=== PATIENT | female | born 1995 | race American Indian/Alaskan Native ===

== ENCOUNTER 2016-09-14 10:48 | Outpatient (CLI) | payer MEDICAID ==
[2016-09-14 11:34] VITALS: BP 107/66
[2016-09-14] MEDS ORDERED: VISTARIL PO ONE ×2 (12:15→13:30)
== END 2016-09-14 13:00 | disposition home or self-care (01) ==
LOC: TRG 10:48
PROVIDERS: ATTEND Obstetrics & Gynecology
DX: O47.1 False labor at or after 37 completed weeks of gestation (principal); Z3A.39 39 weeks gestation of pregnancy
CPT/HCPCS: 59025; Q0177

== ENCOUNTER 2016-09-16 08:22 | Outpatient (CLI) | payer MEDICAID ==
[2016-09-16 08:55] VITALS: BP 121/68
== END 2016-09-16 11:30 | disposition home or self-care (01) ==
LOC: TRG 08:22
PROVIDERS: ATTEND Obstetrics & Gynecology
DX: O47.1 False labor at or after 37 completed weeks of gestation (principal); Z3A.39 39 weeks gestation of pregnancy
CPT/HCPCS: 59025

== ENCOUNTER 2016-09-16 17:19 | Inpatient (IN) | payer MEDICAID ==
[2016-09-16] MEDS ORDERED: LACTATED RINGERS 1,000 ML IV SCH (18:00)
[2016-09-16] MEDS ORDERED: ZOFRAN IV PRN (18:10)
[2016-09-16] MEDS ORDERED: XYLOCAINE 2% INFILTRATI ONE (18:10)
[2016-09-16] MEDS ORDERED: BRETHINE SUB-Q PRN (18:10)
[2016-09-16] MEDS ORDERED: ePHEDrine SULFATE IV PRN ×2 (18:10→20:45)
[2016-09-16] MEDS ORDERED: PHENERGAN PO PRN (18:10)
[2016-09-16] MEDS ORDERED: MINERAL OIL PO PRN (18:10)
[2016-09-16] MEDS ORDERED: BRETHINE IVP PRN (18:10)
[2016-09-16] MEDS ORDERED: SUBLIMAZE IV PRN (18:10)
[2016-09-16] MEDS ORDERED: NARCAN 0.4 MG/1 ML IV PRN (18:10)
--- NOTE | 2016-09-16 18:22 | History and Physical Report ---
History of Present Illness Date of examination: 09/16/16 Date of admission: 09/16/16 17:45 Chief complaint: contractions History of present illness: 21 yo at 39+4 weeks admitted for labor (active). NO VB no leaking and good fm. No other complaints . Patient has 6 visits course include: 1. late care/poor care at 23 weeks 2. anemia- iron given labs: O+ antibody neg h/h 9.9/31.1 Rubella IMM RPR NR Urine culture neg Hep neg HIV neg CF neg PLt 188 sickle AA dionicio neg chlamneg h/h 10.7/32.9 DM 111 PLT 151 US burnette EGA 28 AUA 28+3 weeks EFW 1172 35% anatomy wnl RPR NR chlam neg dionicio neg GBS neg HIV neg Past History Past Medical History: other (ulcer) Past Surgical History: no surgical history Family/Genetic History: none Social history: . denies: smoking, alcohol abuse, prescription drug abuse - Obstetrical History Expected Date of Delivery: 09/19/16 Actual Gestation: 39 Week(s) 4 Day(s) : 1 Para: 0 Hx # Term Pregnancies: 0 Number of Pregnancies: 0 Spontaneous Abortions: 0 Induced : 0 Number of Living Children: 0 Medications and Allergies Allergies Allergy/AdvReac Type Severity Reaction Status Date / Time No Known Allergies Allergy Verified 09/14/16 12:09 Home Medications Medication Instructions Recorded Confirmed Last Taken Type Pnv Cmb#21/Iron/Folic Acid 200 mg PO DAILY 04/11/16 09/14/16 09/13/16 21:00 History [ Complete Caplet] 1 Ferrous Sulfate [Feosol] 325 mg PO TID 09/14/16 09/14/16 09/13/16 21:00 History 1 Active Meds: Active Medications Lactated Ringer's (Lactated Ringers) 1,000 mls @ 125 mls/hr IV DIRECT NIDHI Review of Systems Constitutional: weight gain Eyes: deferred Ears, nose, mouth and throat: deferred Genitourinary: no vaginal bleeding, no leakage of fluid Rectal Exam: deferred - Physical Exam Breasts: Positive: deferred Cardiovascular: Regular rate, Normal S1, Normal S2 Lungs: Positive: Clear to auscultation, Normal air movement Abdomen: Positive: normal appearance, soft, normal bowel sounds Genitourinary (Female): Positive: normal external genitalia, normal perenium Vulva: both: normal Vagina: Positive: normal moisture Cervix: Negative: lesion Uterus: Positive: normal size, normal contour - Obstetrical FHR: auscultation normal, category 1 Uterine Contraction Monitor Mode: External Cervical Dilatation: 6 Cervical Effacement Percentage: 90 station: -3 Uterine Contraction Pattern: Regular Uterine Tone Measurement Phase: Contraction Uterine Contraction Intensity: Moderate Results All other labs normal. Assessment and Plan HD#1 Active labor GBS neg no abs required IVF consider pitocin for augmentation offer epidural continuous monitoring expect vaginal delivery
[2016-09-16 18:33] LABS: Hematocrit 37.3 % (30.3-42.9); Hemoglobin 12.5 gm/dl (10.1-14.3); Mean Corpuscular HGB Conc 34 % (30-34); Mean Corpuscular Hemoglobin 28 pg (28-32); Mean Corpuscular Volume 84 fl (79-97); Platelet Count 137 K/mm3 (140-440); Red Blood Count 4.47 M/mm3 (3.65-5.03); White Blood Count 10.4 K/mm3 (4.5-11.0)
[2016-09-16] MEDS ORDERED: PITOCin/NS 20 UNIT/1000ML DRIP 20 UNITS/1,000 ML BAG IV SCH (19:00)
[2016-09-16] MEDS ORDERED: PITOCin/NS 30 UNIT/500ML 30 UNITS/500 ML BAG IV SCH ×2 (19:00)
[2016-09-16] MEDS: LACTATED RINGERS 1,000 ML IV SCH ×2 (20:01→21:20)
--- NOTE | 2016-09-16 20:47 | Anesthesia Consultation ---
Anesthesia Consult and Med Hx Date of service: 09/16/16 - Airway Anesthetic Teeth Evaluation: Good ROM Head & Neck: Adequate Mental/Hyoid Distance: Adequate Mallampati Class: Class II Intubation Access Assessment: Probably Good - Pulmonary Exam CTA: Yes - Cardiac Exam Cardiac Exam: RRR - Pre-Operative Health Status ASA Pre-Surgery Classification: ASA2 Proposed Anesthetic Plan: Epidural, Spinal - Pulmonary Hx Asthma: No COPD: No Hx Pneumonia: No - Cardiovascular System Hx Hypertension: No - Central Nervous System Hx Seizures: No Hx Psychiatric Problems: No - Endocrine Hx Renal Disease: No Hx End Stage Renal Disease: No Hx Hypothyroidism: No Hx Hyperthyroidism: No - Hematic Hx Anemia: Yes Hx Sickle Cell Disease: No - Additional Comments Anesthesia Medical History Comments: +
[2016-09-16] MEDS ORDERED: ePHEDrine SULFATE ONE (20:56)
[2016-09-16] MEDS ORDERED: fentaNYL-BUPIV 2 MCG/ML-0.125% 200 MCG/100 ML BAG EPIDURAL SCH (21:00)
[2016-09-17] MEDS ORDERED: MILK OF MAGNESIA PO PRN (02:14)
[2016-09-17] MEDS ORDERED: LANSINOH TP PRN (02:14)
[2016-09-17] MEDS ORDERED: PERCOCET 5/325 PO PRN (02:14)
[2016-09-17] MEDS ORDERED: DULCOLAX PR PRN (02:14)
[2016-09-17] MEDS ORDERED: BENADRYL PO PRN (02:14)
[2016-09-17] MEDS ORDERED: ZOFRAN IV PRN (02:14)
[2016-09-17] MEDS ORDERED: TYLENOL PO PRN (02:14)
[2016-09-17] MEDS ORDERED: DERMOPLAST TP PRN (02:14)
[2016-09-17] MEDS ORDERED: NORCO 5/325 PO PRN (02:14)
[2016-09-17] MEDS ORDERED: PHENERGAN PR PRN (02:14)
[2016-09-17] MEDS ORDERED: TUCKS PAD TP PRN (02:14)
[2016-09-17] MEDS ORDERED: PHENERGAN PO PRN (02:14)
--- NOTE | 2016-09-17 02:22 | Procedure Note ---
OB Delivery Note - Delivery Date of Delivery: 09/17/16 Surgeon: STEFANIA BRADLEY Estimated blood loss: 500cc - Vaginal Delivery presentation: vertex Delivery position: OA Intrapartum events: none Delivery induction: none Delivery augmentation: rupture of membranes, pitocin Delivery monitor: external FHT, external uterine Route of delivery: Delivery placenta: spontaneous Delivery cord: 3 umbilical vessels Episiotomy: none Delivery laceration: 2nd degree Delivery repair: vicryl Anesthesia: epidural Delivery comments: Patient was noted to be c/c/+1 and commenced to delivery a viable female infant at 116 . nasospharynx and oropharynx suctions and placed on [facility] [place]. The cord was cut and clamped and placenta delivered at 119. Apgars noted to be 8 and 9 with weight 7#5oz. A 2nd degree perineum and vaginal laceration repaired with 3-0 vicryl and 2-0 vicryl. Patient tolerated procedure well. excellent hemostasis noted EBL 500 cc. - Infant A at 1 minute: 8 at 5 minutes: 9 Infant Gender: Female
[2016-09-17] MEDS ORDERED: SENOKOT S PO SCH (03:00)
[2016-09-17] MEDS ORDERED: SODIUM CHLORIDE FLUSH SYRINGE 10 ML IV PRN (03:00)
[2016-09-17] MEDS ORDERED: PRENATAL VITAMIN PO SCH (10:00)
--- NOTE | 2016-09-17 13:01 | Progress Note ---
Assessment and Plan PPD#1 s/p breast and bottle feeding undecided control Rh+ no rhogam indicated girl VSS lochia decreased Subjective - Subjective Date of service: 09/17/16 Principal diagnosis: s/p Interval history: 21 yo at 39+4 weeks admitted for labor (active). NO VB no leaking and good fm. No other complaints . Patient has 6 visits course include: 1. late care/poor care at 23 weeks 2. anemia- iron given labs: O+ antibody neg h/h 9.9/31.1 Rubella IMM RPR NR Urine culture neg Hep neg HIV neg CF neg PLt 188 sickle AA dionicio neg chlamneg h/h 10.7/32.9 DM 111 PLT 151 US burnette EGA 28 AUA 28+3 weeks EFW 1172 35% anatomy wnl RPR NR chlam neg dionicio neg GBS neg HIV neg Patient reports: appetite normal, voiding normally, pain well controlled, flatus , ambulating normally : doing well, nursing well, bottle feeding Objective - Vital Signs Latest vital signs: Vital Signs Temp Pulse Pulse Resp BP BP Pulse Ox 09/17/16 12:10 98.3 F 88 20 115/51 09/17/16 08:30 98.1 F 93 H 18 111/55 09/17/16 03:00 98.8 F 98 H 20 136/82 09/17/16 02:34 108 H 129/76 09/17/16 02:19 102 H 130/77 09/17/16 02:04 106 H 132/72 09/17/16 01:49 110 H 131/73 09/17/16 01:34 116 H 122/59 09/17/16 01:19 117 H 132/66 09/17/16 00:57 20 09/17/16 00:31 112 H 99 09/17/16 00:26 111 H 98 09/17/16 00:25 119 H 94 09/17/16 00:21 101 H 98 09/17/16 00:16 112 H 105/56 98 09/17/16 00:12 107 H 94 09/17/16 00:11 109 H 95 09/17/16 00:06 104 H 95 09/17/16 00:01 110 H 96 09/16/16 23:56 116 H 98 03/18/17 23:54 110 H 93 0318/17 23:51 110 H 95 0318/17 23:42 105 H 93 0318/17 23:41 110 H 97 0318/17 23:36 110 H 95 0318/17 23:31 109 H 98 0318/17 23:26 109 H 97 18/17 23:21 105 H 99 0318/17 23:16 100 H 85 18/17 23:14 119 H 98 18/17 23:12 114 H 129/66 18/17 23:10 107 H 133/57 18/17 23:09 104 H 97 0318/17 23:08 102 H 131/62 18/17 23:06 101 H 131/62 18/17 23:04 107 H 138/70 97 18/17 23:02 103 H 137/70 18/17 23:00 96 H 133/70 18/17 22:59 97 H 98 18/17 22:58 105 H 118/67 18/17 22:56 100 H 111/63 18/17 22:55 99 H 94 18/17 22:54 97 H 109/68 97 18/17 22:52 102 H 102/67 18/17 22:51 100 H 107/55 18/17 22:49 96 H 109/59 98 18/17 22:46 100 H 119/58 0318/17 22:45 92 H 120/57 0318/17 22:44 96 H 97 0318/17 22:40 95 H 165/126 18/17 22:39 100 H 97 0318/17 22:34 102 H 97 0318/17 22:32 96 H 119/59 0318/17 22:30 104 H 123/71 0318/17 22:29 93 H 127/75 96 0318/17 22:26 99 H 121/58 0318/17 22:24 102 H 123/71 97 0318/17 22:22 96 H 126/72 0318/17 22:20 104 H 118/68 0318/17 22:19 102 H 98 0318/17 22:18 98 H 121/70 18/17 22:16 99 H 115/68 18/17 22:14 96 H 110/75 97 18/17 22:12 103 H 108/73 18/17 22:10 106 H 98/60 18/17 22:09 101 H 98 18/17 22:08 95 H 112/62 18/17 22:06 93 H 107/60 18/17 22:04 95 H 108/64 98 17 22:02 95 H 111/63 18/17 22:01 95 H 109/76 18/17 21:59 96 H 96 18/17 21:58 93 H 137/98 18/17 21:56 100 H 143/70 18/17 21:55 94 H 119/57 18/17 21:54 97 H 97 18/17 21:53 96 H 130/62 18/17 21:50 95 H 100/56 09/16/17 21:49 95 H 102/50 98 09/16/17 21:47 90 93 18/17 21:46 97 H 114/67 18/17 21:45 96 H 124/65 18/17 21:44 98 H 97 18/17 21:42 92 H 118/59 18/17 21:40 92 H 107/60 18/17 21:38 96 H 110/67 18/17 21:36 97 H 107/60 18/17 21:34 100 H 109/52 18/17 21:32 110 H 135/63 18/17 21:30 96 H 119/63 18/17 21:28 95 H 115/64 18/17 21:26 100 H 117/58 18/17 21:24 92 H 115/59 18/17 21:22 103 H 113/58 18/17 21:20 90 113/55 0318/17 21:18 92 H 120/56 96 18/17 21:16 92 H 117/59 18/17 21:15 98 H 93 18/17 21:14 90 122/56 18/17 21:13 97 H 97 18/17 21:12 99 H 117/55 03/18/17 21:10 96 H 110/58 09/16/17 21:09 96 H 113/56 88 17 21:08 105 H 95 17 21:04 99 H 103/58 93 17 21:03 104 H 97 09/16/16 21:02 94 H 102/56 09/16/17 21:00 99 H 102/57 17 20:58 96 H 101/52 99 17 20:56 96 H 103/53 09/16/17 20:54 96 H 101/55 09/16/17 20:53 99 H 98 17 20:52 104 H 100/49 09/16/16 20:50 104 H 100/49 09/16/16 20:49 106 H 97/51 17 20:48 105 H 86 17 20:46 104 H 102/50 17 20:44 108 H 105/52 17 20:42 108 H 107/55 17 20:40 107 H 114/58 17 20:38 114 H 120/59 09/16/17 20:37 104 H 133/58 17 20:34 107 H 97/53 100 17 20:32 103 H 128/58 17 20:30 108 H 118/59 09/16/17 20:29 100 H 100 1817 20:28 106 H 109/59 09/16/16 20:26 105 H 121/58 17 20:24 105 H 119/59 100 1817 20:23 107 H 125/61 82 L 17 20:19 102 H 128/58 100 18/17 18:12 97.6 F 16 Intake and Output 09/16/16 09/17/16 09/17/16 22:59 06:59 14:59 Intake Total 1000 1875 900 Output Total 800 600 Balance 1000 1075 300 Intake: IV 1000 1175 Lactated Ringers 1,000 ml 1000 @ 125 mls/hr IV DIRECT NIDHI Rx#:[id number] PITOCin/NS 20 UNIT/1000ML 1175 DRIP 20 units In 1,000 ml @ 125 mls/hr IV DIRECT NIDHI Rx#:[id number] Oral 300 900 Intake, Free Water 400 Output: Urine 800 600 Void 800 600 Other: Total, Intake Amount 300 900 Total, Output Amount 800 600 # Voids Void 1 2 1 Weight 64.864 kg Estimated Blood Loss 500 - Exam Breasts: Present: normal Cardiovascular: Present: Regular rate, Normal S1, Normal S2 Lungs: Present: Clear to auscultation, Normal air movement Abdomen: Present: normal appearance, soft, normal bowel sounds. Absent: distention, tenderness Vulva: both: normal Uterus: Present: normal, firm, fundal height at umbilicus Extremities: Present: normal Deep Tendon Reflex Grade: Normal +2 - Labs Labs: Abnormal lab results 09/16/16 Range/Units 18:00 RDW 16.0 H (13.2-15.2) % Plt Count 137 L (140-440) K/mm3
[2016-09-17 16:19] LABS: Hematocrit 33.1 % (30.3-42.9); Hemoglobin 10.9 gm/dl (10.1-14.3)
[2016-09-17] MEDS: MOTRIN PO SCH (18:12)
[2016-09-18] MEDS ORDERED: M-M-R II VACCINE SUB-Q ONE (02:14)
[2016-09-18] MEDS: MOTRIN PO SCH ×3 (06:00→12:01)
[2016-09-18] MEDS ORDERED: BOOSTRIX IM ONE (06:00)
--- NOTE | 2016-09-18 08:14 | Progress Note ---
Assessment and Plan A: PPD#1 s/p at term P: Routine care. Discharge today per pt request with follow up at the office in two weeks with Dr Simpson. Subjective - Subjective Date of service: 09/18/16 Principal diagnosis: s/p Interval history: No overnight events. Pt desires to go home today. Patient reports: appetite normal, voiding normally, pain well controlled, ambulating normally, no dizzy ambulation, no nauseated : doing well Objective - Vital Signs Latest vital signs: Vital Signs Temp Pulse Resp BP 09/18/16 06:00 18 09/18/16 05:42 98.0 F 88 20 101/61 09/18/16 01:35 98.2 F 91 H 18 96/56 09/17/16 21:18 97.9 F 88 20 148/88 09/17/16 16:05 97.9 F 86 18 124/75 09/17/16 12:10 98.3 F 88 20 115/51 09/17/16 08:30 98.1 F 93 H 18 111/55 Intake and Output 09/17/16 09/18/16 09/18/16 22:59 06:59 14:59 Intake Total 360 Balance 360 Intake: Oral 360 Other: Total, Intake Amount 360 - Exam Breasts: Present: deferred Cardiovascular: Present: Regular rate Lungs: Present: Clear to auscultation Abdomen: Present: soft Uterus: Present: fundal height below umbilicus Extremities: Present: normal
--- NOTE | 2016-09-18 08:17 | Discharge Summary ---
Providers - Providers Date of Admission: 09/16/16 17:45 Date of discharge: 09/18/16 Attending physician: STEFANIA BRADLEY MD Primary care physician: JOSEPHINE SOL Hospitalization Reason for admission: active labor Delivery: Procedure details: , please see delivery note. Episiotomy: none Laceration: 2nd degree Other procedures: none complications: none Discharge diagnosis: IUP at term delivered [place] baby: female Hospital course: Pt underwent spontaneous vaginal delivery which she tolerated well. Her course was uncomplicated and she met discharge criteria on PPD#1. Condition at discharge: Stable Disposition: DISCHARGED TO HOME OR SELFCARE - Discharge Diagnoses (1) Term of female Status: Acute (2) Anemia affecting Status: Acute Plan - Discharge Medications Prescriptions: Docusate Sodium [Colace CAP] 100 mg PO BID PRN #30 capsule PRN Reason: Constipation Ferrous Sulfate [Feosol 325 MG tab] 325 mg PO BID #60 tablet Ibuprofen [Motrin] 600 mg PO Q8H PRN #60 tablet PRN Reason: Pain oxyCODONE /ACETAMINOPHEN [Percocet 5/325] 1 tab PO Q6HR PRN #30 tablet PRN Reason: Pain - Provider Discharge Summary Activity: routine, no sex for 6 weeks, no heavy lifting 4 weeks, no strenuous exercise Diet: routine Instructions: routine Additional instructions: [] Smoking cessation referral if applicable(refer to patient education folder for contact #) [] Refer to [facility] Booklet Call your doctor immediately for: * Fever > 100.5 * Heavy vaginal bleeding ( >1 pad per hour) * Severe persistent headache * Shortness of breath * Reddened, hot, painful area to leg or breast * Drainage or odor from incision. * Keep incision clean and dry at all times and follow doctor's instructions regarding bathing/showering - Follow up plan Follow up: STEFANIA BRADLEY MD [Staff Physician] - 10/02/16 (laceration check )
[2016-09-18] MEDS: COLACE PO SCH ×2 (10:20)
[2016-09-18 17:43] VITALS: BP 98/50
== END 2016-09-18 16:00 | disposition home or self-care (01) | DRG 775 ==
LOC: TRG 17:19 → LD 17:45 → TRG 17:45 → OB 09-17 03:46
PROVIDERS: ADMIT Obstetrics & Gynecology; ATTEND Obstetrics & Gynecology
PROC: 0KQM0ZZ Repair Perineum Muscle, Open Approach (ICD-10-PCS; principal; 2016-09-17)
PROC: 10E0XZZ Delivery of Products of Conception, External Approach (ICD-10-PCS; 2016-09-17)
PROC: 3E0S3CZ (ICD-10-PCS; 2016-09-17)
PROC: 00HU33Z Insertion of Infusion Device into Spinal Canal, Percutaneous Approach (ICD-10-PCS; 2016-09-17)
DX: O99.02 Anemia complicating childbirth (principal); O70.1 Second degree perineal laceration during delivery; Z3A.39 39 weeks gestation of pregnancy; Z37.0 Single live birth; D64.9 Anemia, unspecified
CPT/HCPCS: 36415; 85014; 85018; 85027; 86850; 86900; 86901; 90471; 90715; 99211; A6250; G0463; J2590; J3010; J7120

== ENCOUNTER 2021-03-28 06:05 | Day surgery (SDC) | payer MEDICAID ==
[~2021-03-28 06:05] MED LIST: ACETAMINOPHEN 500 MG TAB PO SCH; CELECOXIB 200 MG CAP PO NR; GABAPENTIN 300 MG CAP PO NR; LACTATED RINGERS 1,000 ML IV SCH; MIDAZOLAM 2 MG/2 ML INJ IV NR; SCOPOLAMINE TRANSDERMAL PATCH 72 HR TD NR
[2021-03-28 07:06] LABS: Hemoglobin 11.3 gm/dl (10.1-14.3); Mean Corpuscular HGB Conc 35 % (30-34); Mean Corpuscular Volume 86 fl (79-97); Platelet Count 177 K/mm3 (140-440); Red Blood Count 3.71 M/mm3 (3.65-5.03)
[2021-03-28] MEDS ORDERED: fentaNYL 100 MCG/2 ML INJ ONE (07:16)
[2021-03-28] MEDS ORDERED: ROCURONIUM 50 MG/5 ML INJ IV ONE (07:16)
[2021-03-28] MEDS ORDERED: LIDOCAINE MPF (2%) 20 MG/1 ML VIAL 5 ML ONE (07:16)
[2021-03-28] MEDS ORDERED: propofoL 200 MG/20 ML VIAL IV ONE (07:16)
--- NOTE | 2021-03-28 07:21 | Anesthesia Consultation ---
Anesthesia Consult and Med Hx Date of service: 03/28/21 - Airway Anesthetic Teeth Evaluation: Good ROM Head & Neck: Adequate Mental/Hyoid Distance: Adequate Mallampati Class: Class II Intubation Access Assessment: Probably Good - Pre-Operative Health Status ASA Pre-Surgery Classification: ASA1 Proposed Anesthetic Plan: General - Pulmonary Hx Smoking: No Hx Respiratory Symptoms: No - Cardiovascular System Hx Hypertension: No - Central Nervous System CVA: No - Endocrine Hx Renal Disease: No Hx Liver Disease: No Hx Insulin Dependent Diabetes: No Hx Non-Insulin Dependent Diabetes: No Hx Thyroid Disease: No - Other Systems Hx Obesity: Yes (BMI 30) - Additional Comments Anesthesia Medical History Comments: No hx anesthetic complications.
[2021-03-28] MEDS ORDERED: ONDANSETRON 4 MG/2 ML INJ IV PRN (07:22)
[2021-03-28] MEDS ORDERED: HYDROmorphone 1 MG/1 ML INJ IV PRN (07:22)
--- NOTE | 2021-03-28 07:22 | Anesthesia Day of Surgery ---
Anesthesia Day of Surgery - Day of Surgery Patient Examined: Yes Patient H&P Reviewed: Yes Patient is NPO: Yes
--- NOTE | 2021-03-28 07:25 | Short Stay Summary ---
Short Stay Documentation Date of service: 03/28/21 Narrative H&P: 26-year-old -0-0-1 with history of chronic pelvic pain. The patient underwent ultrasound with unremarkable findings. The patient has attempted medical management without significant improvement of her pain. She reports consistent left lower quadrant pain that has been unresolved. The patient is elected to undergo surgical management. - History Principal diagnosis: Chronic pelvic pain Past Medical History: other (GI ulcer) Past Surgical History: No surgical history Social history: single - Allergies and Medications Current Medications: Allergies No Known Allergies Allergy (Verified 03/27/21 11:23) Home Medications Medication Instructions Recorded Confirmed Last Taken Type No Known Home Medications [No 03/23/21 03/23/21 Unknown History Reported Home Medications] Active Medications Acetaminophen (Acetaminophen 500 Mg Tab) 1,000 mg PO PREOP NIDHI Last Admin: 03/28/21 06:55 Dose: 1,000 mg Documented by: Celecoxib (Celecoxib 200 Mg Cap) 200 mg PO PREOP NR Stop: 03/28/21 23:59 Last Admin: 03/28/21 06:55 Dose: 200 mg Documented by: Gabapentin (Gabapentin 300 Mg Cap) 300 mg PO PREOP NR Stop: 03/28/21 22:59 Last Admin: 03/28/21 06:55 Dose: 300 mg Documented by: Hydromorphone HCl (Hydromorphone 1 Mg/1 Ml Inj) 0.5 mg IV Q10MIN PRN PRN Reason: Pain , Severe (7-10) Lactated Ringer's (Lactated Ringers) 1,000 mls @ 100 mls/hr IV DIRECT NIDHI Stop: 03/28/21 23:59 Last Admin: 03/28/21 07:08 Dose: 100 mls/hr Documented by: Midazolam HCl (Midazolam 2 Mg/2 Ml Inj) 2 mg IV PREOP NR Stop: 03/28/21 23:59 Ondansetron HCl (Ondansetron 4 Mg/2 Ml Inj) 4 mg IV ONCE PRN PRN Reason: Nausea And Vomiting Oxycodone/Acetaminophen (Oxycodone /Acetaminophen 5-325mg Tab) 1 tab PO ONCE PRN PRN Reason: Pain, Moderate (4-6) Scopolamine (Scopolamine Transdermal Patch 72 Hr) 1 each TD PREOP NR Stop: 03/28/21 23:59 Last Admin: 03/28/21 07:00 Dose: 1 each Documented by: - Physical exam General appearance: no acute distress Integumentary: no rash HEENT: Atraumatic Lungs: Clear to auscultation Breasts: deferred Heart: Regular rate Gastrointestinal: normal Female Genitourinary: deferred Rectal Exam: deferred - Brief post op/procedure progress note Date of procedure: 03/28/21 Pre-op diagnosis: Chronic pelvic pain Post-op diagnosis: same Procedure: Laparoscopy Excision of endometriotic implants Anesthesia: GETA Surgeon: RAMONA JACOBSON Estimated blood loss: minimal Pathology: list (Endometriotic implants) Specimen disposition: to lab Condition: stable - Hospital course Hospital course: The patient was admitted the day of surgery and underwent a laparoscopy. Please see operative note for details of surgery. Her postoperative course was uneventful. - Disposition Condition at discharge: Good Disposition: 01 HOME / SELF CARE / HOMELESS Short Stay Discharge Plan Activity: other (Pelvic rest for 1 week) Diet: regular Additional Instructions: Patient may schedule follow-up with Dr. Jacobson in 2 weeks Prescriptions: Ibuprofen [Motrin] 800 mg PO Q8HR PRN #30 tablet PRN Reason: Pain , Severe (7-10) HYDROcodone/APAP 5-325 [[place] 5/325] 1 each PO Q6HR PRN #15 tablet PRN Reason: Pain
[2021-03-28] MEDS ORDERED: BUPIVACAINE/PF (0.5%) 5 MG/1 ML 30 ML VIAL INFILTRATI ONE ×2 (08:00→08:15)
[2021-03-28] MEDS ORDERED: oxyCODONE /ACETAMINOPHEN 5-325MG TAB PO PRN (08:00)
[2021-03-28] MEDS ORDERED: HYDROmorphone 1 MG/1 ML INJ ONE (08:07)
[2021-03-28] MEDS ORDERED: SODIUM CHLORIDE 0.9% IRR 1,500 ML BOTTLE IR ONE (08:15)
[2021-03-28] MEDS ORDERED: NEOSTIGMINE 10MG/10 ML INJ MDV ONE (08:20)
[2021-03-28] MEDS ORDERED: GLYCOPYRROLATE 0.4 MG/2 ML INJ ONE (08:20)
[2021-03-28] MEDS ORDERED: KETOROLAC 30 MG/1 ML INJ ONE (08:23)
[2021-03-28] MEDS ORDERED: dexAMETHasone 20 MG/5 ML VIAL ONE (08:30)
[2021-03-28] MEDS ORDERED: ONDANSETRON 4 MG/2 ML INJ ONE (08:30)
[2021-03-28] MEDS ORDERED: LACTATED RINGERS 1,000 ML ONE (08:32)
--- NOTE | 2021-03-28 08:33 | Operative Report ---
Operative Report Operative Report: Date of surgery: March 28, 2021 Preoperative diagnosis: Chronic pelvic pain Postoperative diagnosis: Same as above; stage I endometriosis Procedure: Laparoscopy; excision of endometriotic implants Surgeon: Connie Bright M.D. Anesthesia: General endotracheal anesthesia Estimated blood loss: Minimal Findings: 3 endometriotic implants involving the peritoneum of the anterior cul-de-sac Pathology: Endometriotic implants Indication: 26-year-old -0-0-1 with a history of chronic pelvic pain. Procedure: The patient was taken to the operating room and given general endotracheal anesthesia without complication. The patient is prepped and draped in a normal sterile fashion. A bivalve speculum was placed in the patient's vagina and a single-tooth tenaculum was placed on the anterior lip of the cervix .A uterine acorn manipulator was placed, and the bivalve speculum was then removed. Attention was then turned to the patient's abdomen where a 5 mm infraumbilical skin incision was then made. A Veress needle was placed and peritoneal entry was verified water-filled syringe. Insufflation of the peritoneal cavity was performed with CO2 gas. A 5 mm trocar was placed and the laparoscope was then inserted. The patient was then placed in Trendelenburg. A 5 mm suprapubic skin incision was then made. Under direct visualization a 5 mm trocar was then placed. An additional 5 mm left lateral trocar was also placed. General survey of the patient's abdomen revealed normal uterus tubes and ovaries. The patient had findings of 3 identifiable endometriotic implants involving the peritoneum and the anterior cul-de-sac. The monopolar scissors were used in order to excise the peritoneal endometriotic implants. The peritoneum was lifted with the graspers. The monopolar scissors were used to undermine in the avascular plane. Excision of the endometriotic implants were performed without the use of electrocautery. The trocars were then removed. The pneumoperitoneum was then released. The 5 mm trocar laparoscope was then removed. The skin incisions were then closed with 4-0 Monocryl. The incisions were injected with quarter percent Marcaine. Dressings were applied to the incision. The vaginal instruments were then removed atraumatically. Then successfully extubated and taken to the recovery room. All sponge laps and needle counts were correct x2.
[2021-03-28 10:02] VITALS: BP 124/78
--- NOTE | 2021-03-28 11:51 | Post Anesthesia Evaluation ---
- Post Anesthesia Evaluation Patient Participated: Yes Airway Patent: Yes Stable Respiratory Function: Yes Nausea/Vomiting: No Temp > 96.8F: Yes Pain Manageable: Yes Adequeate Hydration: Yes Anesthesia Complications: No
== END 2021-03-28 10:45 | disposition home or self-care (01) ==
LOC: OR 06:05
PROVIDERS: ATTEND Obstetrics & Gynecology
DX: R10.2 Pelvic and perineal pain (principal); G89.29 Other chronic pain; N80.8 Other endometriosis; E66.9 Obesity, unspecified; Z79.899 Other long term (current) drug therapy; Z98.890 Other specified postprocedural states; Z68.30 Body mass index [BMI] 30.0-30.9, adult; Z20.822 Contact with and (suspected) exposure to COVID-19
CPT/HCPCS: 36415; 58662; 81025; 85027; 88305; J1100; J1170; J1885; J2250; J2405; J2704; J2710; J3010; J7120; U0003